=== PATIENT | female | born 1995 | race Caucasian/White ===

== ENCOUNTER → 2019-07-14 | Outpatient (CLI) | payer MEDICAID ==
--- NOTE | 2019-07-15 13:03 | RADIOLOGY REPORT (SQ) ---
EXAM DESCRIPTION: U/S EXTREMITY NONVASCULAR LTD COMPLETED DATE/TIME: 07/14/2019 4:58 pm REASON FOR STUDY: M79.601 PAIN IN RIGHT ARM M79.601 PAIN IN RIGHT ARM COMPARISON: None. TECHNIQUE: Static and dynamic grayscale images of the proximal right upper extremity were obtained. LIMITATIONS: None. FINDINGS: As stated above, dynamic and static grayscale images of the proximal right upper extremity , the site of pain, were obtained. 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 The patient has been experiencing pain at that site since March 2019. At the site of pain, in the medial aspect of the right upper extremity, there is a linear shadowing e chogenic structure that measures 3.8 cm in length. The structure is superficial located just beneath the skin and 5 mm above the musculature. The structure is palpable. IMPRESSION: At the site of pain and palpable abnormality in the right upper quadrant there is a shad owing echogenic structure that measures 3.8 cm in length. The structure likely represents the Nexpla non that was placed in the upper extremity in 2018. The implant is superficial located just beneath the skin and 5 mm above the musculature. TECHNICAL DOCUMENTATION: JOB ID: [id number] [employer]- All Rights Reserved Reading location - IP/workstation name: [email or web address]
== END ==
LOC: RAD 16:06
PROVIDERS: ATTEND Physician Assistant
DX: M79.601 Pain in right arm (principal)
CPT/HCPCS: 76882